=== PATIENT | female | born 1955 | race African-American/Black ===

== ENCOUNTER 2017-06-23 11:29 | Emergency (ER) | payer MEDICARE, MEDICAID ==
[~2017-06-23] VITALS: Ht 170.2 cm; Wt 130.5 kg
[~2017-06-23 11:29] MED LIST: AMIT50TA3 PO; ESCI20TA PO; LEVO150 PO; LISI-660 PO; METF500T4 PO; METO25 PO; PANT20TA12 PO; SIMV-261 PO; TOPI25 PO
[2017-06-23 12:08] VITALS: BP 120/80
[2017-06-23 12:13] LABS: GLUCOSE,POINT OF CARE 109 MG/DL (70-110)
== END 2017-06-23 12:42 | disposition home or self-care (01) ==
LOC: EMS 11:31
DX: R23.8 Other skin changes (principal); I89.0 Lymphedema, not elsewhere classified; I11.0 Hypertensive heart disease with heart failure; I50.9 Heart failure, unspecified; E78.00 Pure hypercholesterolemia, unspecified; E11.9 Type 2 diabetes mellitus without complications; Z88.0 Allergy status to penicillin
CPT/HCPCS: 82948; 82962; 99282

== ENCOUNTER 2017-06-25 09:12 | Emergency (ER) | payer MEDICARE, MEDICAID ==
[~2017-06-25] VITALS: Ht 170.2 cm; Wt 130.0 kg
[2017-06-25 09:59] LABS: BASOPHILS % (AUTO) 0.6 % (0.0-2.0); EOSINOPHILS % (AUTO) 0.4 % (1.0-6.0); HEMATOCRIT 34.1 % (36-46); HEMOGLOBIN 10.9 g/dL (12.0-16.0); LYMPHOCYTES # (AUTO) 0.9 K/uL (1.0-4.8); LYMPHOCYTES % (AUTO) 10.3 % (22.0-44.0); MEAN CORPUSCULAR HEMOGLOBIN 29.7 pg (26.0-34.0); MEAN CORPUSCULAR HGB CONC 32.1 G/dL (31.0-37.0); MEAN CORPUSCULAR VOLUME 93 fL (80-100); MONOCYTES # (AUTO) 0.4 K/uL (0.1-1.0); NEUTROPHILS # (AUTO) 7.4 K/uL (1.8-7.7); NEUTROPHILS % (AUTO) 83.7 % (40.0-70.0); PLATELET COUNT (AUTO) 240 K/uL (150-450); RED BLOOD CELL COUNT(AUTO) 3.67 MIL/uL (4.00-5.20)
[2017-06-25] MEDS ORDERED: SODIUM CHLORIDE 0.9% 1,000 ML IV ONE (10:15)
[2017-06-25] MEDS ORDERED: ONDANSETRON HCL 4 MG/2 ML VIAL IVP ONE (10:15)
[2017-06-25 10:22] LABS: ANION GAP 10 mmol/L (8-16); CALCIUM, TOTAL 9.2 mg/dL (8.8-10.5); CARBON DIOXIDE 27 mmol/L (22-29); CHLORIDE 103 mmol/L (98-107); CREATININE 2.29 mg/dL (0.60-1.30); GLOMERULAR FILTR. RATE CALC 26 mL/min (>60); GLUCOSE,RANDOM 140 mg/dL (70-110); POTASSIUM 3.9 mmol/L (3.5-5.1); SODIUM SERUM 140 mmol/L (136-145); UREA NITROGEN, BLOOD 22 mg/dL (7-18)
[2017-06-25 10:40] LABS: B-TYPE NATRIURETIC PEPTIDE 9 pg/mL (0-100)
[2017-06-25] MEDS ORDERED: MORPHINE SULFATE 4 MG/ML SYRINGE IVP ONE ×2 (10:45→14:45)
[2017-06-25 10:48] LABS: ALANINE AMINOTRANSFERASE 14 U/L (12-78); ALBUMIN 3.7 g/dL (3.4-5.0); ALKALINE PHOSPHATASE 68 U/L (46-116); ASPARTATE AMINOTRANSFERASE 13 U/L (15-37); BILIRUBIN,TOTAL 0.8 mg/dL (0.1-1.0); CREATINE KINASE MB 0.8 ng/mL (0-5); CREATINE KINASE, TOTAL 107 U/L (26-192); TOTAL PROTEIN, SERUM 7.6 g/dL (6.4-8.2)
[2017-06-25] MEDS ORDERED: IOVERSOL 350 MG/ML 150 ML VIAL ONE (11:03)
[2017-06-25 11:35] LABS: APPEARANCE,URINE CLEAR (CLEAR); BILIRUBIN,URINE NEGATIVE (NEGATIVE); GLUCOSE, URINE (UA) NEGATIVE (NEGATIVE); KETONES,URINE NEGATIVE (NEGATIVE); LEUKOCYTE ESTERASE ,URINE NEGATIVE (NEGATIVE); NITRATE,URINE NEGATIVE (NEGATIVE); OCCULT BLOOD,URINE NEGATIVE (NEGATIVE); PROTEIN,URINE NEGATIVE (NEGATIVE)
[2017-06-25 11:44] LABS: D-DIMER 13.59 mg/L FEU (0.00-0.50)
[2017-06-25 15:40] VITALS: BP 140/91
== END 2017-06-25 15:46 | disposition home or self-care (01) ==
LOC: EMS 09:14
DX: I11.0 Hypertensive heart disease with heart failure (principal); I50.9 Heart failure, unspecified; N28.9 Disorder of kidney and ureter, unspecified; R55 Syncope and collapse; E11.9 Type 2 diabetes mellitus without complications; E78.00 Pure hypercholesterolemia, unspecified; I89.0 Lymphedema, not elsewhere classified; M10.9 Gout, unspecified; Z88.0 Allergy status to penicillin
CPT/HCPCS: 36415; 71045; 71275; 80053; 81003; 82271; 82550; 82553; 83880; 84484; 85025; 85379; 85610; 93005; 96361; 96374; 96375; 96376; 99285; J2270; J2405; J7030; Q9967

== ENCOUNTER 2017-07-03 14:42 | Emergency (ER) | payer MEDICAID, MEDICARE ==
[~2017-07-03] VITALS: Ht 170.2 cm; Wt 125.0 kg
[2017-07-03] MEDS ORDERED: DiphenhydrAMINE HCL 50 MG CAPSULE PO ONE (17:15)
[2017-07-03] MEDS ORDERED: PredniSONE 20 MG TABLET PO ONE (17:15)
[2017-07-03 17:34] VITALS: BP 132/78
== END 2017-07-03 18:03 | disposition home or self-care (01) ==
LOC: EMS 14:44
DX: L50.9 Urticaria, unspecified (principal); E11.9 Type 2 diabetes mellitus without complications; E78.00 Pure hypercholesterolemia, unspecified; I11.0 Hypertensive heart disease with heart failure; I50.9 Heart failure, unspecified; M10.9 Gout, unspecified; Z88.0 Allergy status to penicillin
CPT/HCPCS: 82962; 99283; J7512

== ENCOUNTER 2017-07-24 17:51 | Inpatient (IN) | payer MEDICARE ==
[~2017-07-24] VITALS: Ht 170.2 cm; Wt 115.5 kg
[~2017-07-24 17:51] MED LIST changes: -LISI-660 PO; +MECL-129 PO; -METO25 PO
[2017-07-24 18:32] LABS: GLUCOSE,POINT OF CARE 105 MG/DL (70-110)
[2017-07-24 18:32] LABS: BASOPHILS % (AUTO) 0.8 % (0.0-2.0); EOSINOPHILS % (AUTO) 2.8 % (1.0-6.0); HEMOGLOBIN 10.6 g/dL (12.0-16.0); LYMPHOCYTES # (AUTO) 1.2 K/uL (1.0-4.8); LYMPHOCYTES % (AUTO) 26.3 % (22.0-44.0); MEAN CORPUSCULAR HEMOGLOBIN 29.4 pg (26.0-34.0); MEAN CORPUSCULAR VOLUME 92 fL (80-100); MONOCYTES # (AUTO) 0.5 K/uL (0.1-1.0); MONOCYTES % (AUTO) 10.1 % (2.0-9.0); NEUTROPHILS # (AUTO) 2.8 K/uL (1.8-7.7); PLATELET COUNT (AUTO) 249 K/uL (150-450); RED CELL DISTRIBUTION WIDTH 13.9 % (11.5-14.5)
[2017-07-24 18:46] LABS: ANION GAP 15 mmol/L (8-16); CARBON DIOXIDE 24 mmol/L (22-29); CHLORIDE 100 mmol/L (98-107); GLOMERULAR FILTR. RATE CALC 24 mL/min (>60); GLUCOSE,RANDOM 115 mg/dL (70-110); POTASSIUM 3.4 mmol/L (3.5-5.1); SODIUM SERUM 139 mmol/L (136-145); UREA NITROGEN, BLOOD 26 mg/dL (7-18)
[2017-07-24 18:51] LABS: ALANINE AMINOTRANSFERASE 13 U/L (12-78); ALBUMIN 3.7 g/dL (3.4-5.0); ALKALINE PHOSPHATASE 88 U/L (46-116); ASPARTATE AMINOTRANSFERASE 14 U/L (15-37); BILIRUBIN,TOTAL 0.8 mg/dL (0.1-1.0)
[2017-07-24 19:07] LABS: SALICYLATE < 2.8 mg/dL (2.8-20.0)
[2017-07-24 19:11] LABS: ACETAMINOPHEN < 2 mcg/mL (10-30)
[2017-07-24] MEDS ORDERED: ACTIVATED CHARCOAL 50 GM/240 ML SUSPENSION PO ONE (19:15)
[2017-07-24] MEDS ORDERED: POTASSIUM CHLORIDE 20 MEQ ER TABLET PO ONE (20:15)
[2017-07-24 20:17] LABS: AMPHET/METH SCREEN,URINE NEGATIVE (NEGATIVE); BARBITURATE SCREEN, URINE NEGATIVE (NEGATIVE); BENZODIAZEPINES SCREEN,URINE NEGATIVE (NEGATIVE); CANNABINOID SCREEN,URINE NEGATIVE (NEGATIVE); COCAINE SCREEN,URINE NEGATIVE (NEGATIVE); METHADONE SCREEN, URINE NEGATIVE (NEGATIVE); OPIATE SCREEN,URINE NEGATIVE (NEGATIVE)
[2017-07-24 20:23] LABS: PHENCYCLIDINE SCREEN,URINE NEGATIVE (NEGATIVE)
[2017-07-24] MEDS ORDERED: SODIUM CHLORIDE 0.9% 1,000 ML IV ONE (21:15)
[2017-07-24] MEDS ORDERED: HALOPERIDOL 5 MG TABLET PO PRN (23:15)
[2017-07-24] MEDS ORDERED: LORazepam 2 MG TABLET PO PRN (23:15)
[2017-07-24 23:36] LABS: APPEARANCE,URINE CLOUDY (CLEAR); GLUCOSE, URINE (UA) NEGATIVE (NEGATIVE); KETONES,URINE TRACE mg/dL (NEGATIVE); LEUKOCYTE ESTERASE ,URINE NEGATIVE (NEGATIVE); NITRATE,URINE NEGATIVE (NEGATIVE); OCCULT BLOOD,URINE NEGATIVE (NEGATIVE); PH,URINE 5.5 (5.0-8.0); PROTEIN,URINE NEGATIVE (NEGATIVE); UROBILINOGEN,URINE 0.2 mg/dL (<=1.0)
[2017-07-24 23:41] LABS: BILIRUBIN,URINE PRELIM. POSITIVE (NEGATIVE)
[2017-07-25 00:37] VITALS: BP 95/64
[2017-07-25 01:01] LABS: CHOL/HDL RATIO 3.3 (3.9-5.7); CHOLESTEROL 111 mg/dL (131-200); HDL CHOLESTEROL 34 mg/dL (40-60); LDL CHOL (CALC.) 53 mg/dL (0-130); THYROID STIMULATING HORMONE 1.06 uIU/mL (0.36-3.74); TRIGLYCERIDES 122 mg/dL (15-150)
[2017-07-25] MEDS ORDERED: MECLIZINE HCL 25 MG TABLET PO PRN (06:45)
[2017-07-25 07:11] LABS: GLUCOMETER DEV NAME(LOC) 3EI B; GLUCOSE,POINT OF CARE 102 MG/DL (70-110)
[2017-07-25] MEDS ORDERED: INSULIN ASPART 100 UNITS/ML SQ PRN (07:30)
[2017-07-25] MEDS ORDERED: DEXTROSE 50%-WATER 25 GM/50 ML SYRINGE IVP PRN (07:30)
[2017-07-25] MEDS: LEVOTHYROXINE SODIUM 150 MCG TABLET PO SCH (07:35)
[2017-07-25] MEDS: PANTOPRAZOLE SODIUM 40 MG DR TABLET PO SCH (07:35)
[2017-07-25] MEDS: MetFORMIN HCL 500 MG TABLET PO SCH ×2 (07:36→17:11)
[2017-07-25 08:00] VITALS: BP 105/78
[2017-07-25] MEDS: SIMVASTATIN 40 MG TABLET PO SCH (08:21)
[2017-07-25] MEDS: TOPIRAMATE 25 MG TABLET PO SCH (08:21)
[2017-07-25] MEDS ORDERED: ACETAMINOPHEN 325 MG TABLET PO PRN (16:00)
[2017-07-25] MEDS ORDERED: IBUPROFEN 400 MG TABLET PO PRN (16:00)
[2017-07-25] MEDS ORDERED: ALBUTEROL SULFATE HFA 90 MCG/PUFF 8 GM INHALER IH PRN (16:00)
[2017-07-25 16:13] LABS: GLUCOMETER DEV NAME(LOC) 3EX 1; GLUCOSE,POINT OF CARE 112 MG/DL (70-110)
[2017-07-25] MEDS: FERROUS SULFATE 325 MG EC TABLET PO SCH ×2 (17:12→19:41)
[2017-07-25 17:32] VITALS: BP 130/77
[2017-07-25] MEDS: AMITRIPTYLINE HCL 50 MG TABLET PO SCH (20:47)
[2017-07-25] MEDS ORDERED: AMITRIPTYLINE HCL 50 MG TABLET PO SCH (21:00)
[2017-07-26 04:20] VITALS: BP_SYST 108; BP_SYST 89; BP_DIAS 58; BP_DIAS 68
[2017-07-26 04:25] VITALS: BP 82/48
[2017-07-26 06:08] LABS: GLUCOMETER DEV NAME(LOC) 3EI B; GLUCOSE,POINT OF CARE 123 MG/DL (70-110)
[2017-07-26 06:36] LABS: % IRON SATURATION 20.8 % (22-44)
[2017-07-26 06:40] LABS: HEMOGLOBIN A1C 5.9 % (4.5-6.2)
[2017-07-26 06:56] LABS: THYROID STIMULATING HORMONE 0.82 uIU/mL (0.36-3.74)
[2017-07-26] MEDS: FERROUS SULFATE 325 MG EC TABLET PO SCH ×3 (07:12→16:42)
[2017-07-26] MEDS: PANTOPRAZOLE SODIUM 40 MG DR TABLET PO SCH (07:12)
[2017-07-26] MEDS: MetFORMIN HCL 500 MG TABLET PO SCH ×2 (07:12→16:43)
[2017-07-26] MEDS: LEVOTHYROXINE SODIUM 150 MCG TABLET PO SCH (07:12)
[2017-07-26 07:15] VITALS: BP 87/52
[2017-07-26 08:30] VITALS: BP 98/58
[2017-07-26] MEDS: TOPIRAMATE 25 MG TABLET PO SCH (08:42)
[2017-07-26] MEDS: ESCITALOPRAM OXALATE 20 MG TABLET PO SCH (08:42)
[2017-07-26] MEDS: SIMVASTATIN 40 MG TABLET PO SCH (08:43)
[2017-07-26] MEDS ORDERED: TOPIRAMATE 25 MG TABLET PO SCH (09:00)
[2017-07-26] MEDS: MULTIVITAMINS WITH MINERALS, THERAPEUTIC TABLET PO SCH (14:14)
[2017-07-26 16:43] LABS: GLUCOMETER DEV NAME(LOC) 3EX 1; GLUCOSE,POINT OF CARE 126 MG/DL (70-110)
[2017-07-26] MEDS: AMITRIPTYLINE HCL 50 MG TABLET PO SCH (20:16)
[2017-07-26 22:01] VITALS: BP 120/87
[2017-07-27 05:43] LABS: GLUCOMETER DEV NAME(LOC) 3EI B; GLUCOSE,POINT OF CARE 95 MG/DL (70-110)
[2017-07-27] MEDS: LEVOTHYROXINE SODIUM 150 MCG TABLET PO SCH (07:05)
[2017-07-27] MEDS: PANTOPRAZOLE SODIUM 40 MG DR TABLET PO SCH (07:06)
[2017-07-27] MEDS: FERROUS SULFATE 325 MG EC TABLET PO SCH ×3 (07:13→17:23)
[2017-07-27] MEDS: MetFORMIN HCL 500 MG TABLET PO SCH ×2 (07:13→17:23)
[2017-07-27] MEDS: MULTIVITAMINS WITH MINERALS, THERAPEUTIC TABLET PO SCH (07:52)
[2017-07-27] MEDS: TOPIRAMATE 25 MG TABLET PO SCH (07:52)
[2017-07-27] MEDS: SIMVASTATIN 40 MG TABLET PO SCH (07:52)
[2017-07-27] MEDS: ESCITALOPRAM OXALATE 20 MG TABLET PO SCH (07:52)
[2017-07-27] MEDS: SILVER 45 ML GEL TP SCH (07:53)
[2017-07-27 08:01] VITALS: BP 102/62
[2017-07-27 17:17] LABS: GLUCOMETER DEV NAME(LOC) 3EX 1; GLUCOSE,POINT OF CARE 110 MG/DL (70-110)
[2017-07-27] MEDS: AMITRIPTYLINE HCL 50 MG TABLET PO SCH (20:11)
[2017-07-27 20:37] VITALS: BP 100/63
[2017-07-28 05:58] LABS: GLUCOMETER DEV NAME(LOC) 3EI B; GLUCOSE,POINT OF CARE 103 MG/DL (70-110)
[2017-07-28] MEDS: FERROUS SULFATE 325 MG EC TABLET PO SCH ×3 (07:17→17:37)
[2017-07-28] MEDS: PANTOPRAZOLE SODIUM 40 MG DR TABLET PO SCH (07:17)
[2017-07-28] MEDS: MetFORMIN HCL 500 MG TABLET PO SCH ×2 (07:17→17:37)
[2017-07-28] MEDS: LEVOTHYROXINE SODIUM 150 MCG TABLET PO SCH (07:17)
[2017-07-28 07:20] VITALS: BP 91/57
[2017-07-28 08:13] VITALS: BP 116/71
[2017-07-28] MEDS: MULTIVITAMINS WITH MINERALS, THERAPEUTIC TABLET PO SCH (08:19)
[2017-07-28] MEDS: SIMVASTATIN 40 MG TABLET PO SCH (08:20)
[2017-07-28] MEDS: ESCITALOPRAM OXALATE 20 MG TABLET PO SCH (08:20)
[2017-07-28] MEDS: TOPIRAMATE 25 MG TABLET PO SCH (08:20)
[2017-07-28] MEDS: SILVER 45 ML GEL TP SCH (14:45)
[2017-07-28 16:58] LABS: GLUCOMETER DEV NAME(LOC) 3EX 1; GLUCOSE,POINT OF CARE 125 MG/DL (70-110)
[2017-07-28 17:24] VITALS: BP 125/82
[2017-07-28] MEDS: AMITRIPTYLINE HCL 50 MG TABLET PO SCH (20:04)
[2017-07-29 05:18] VITALS: BP 99/70
[2017-07-29 05:43] LABS: GLUCOMETER DEV NAME(LOC) 3EI B; GLUCOSE,POINT OF CARE 109 MG/DL (70-110)
[2017-07-29] MEDS: LEVOTHYROXINE SODIUM 150 MCG TABLET PO SCH (07:01)
[2017-07-29] MEDS: PANTOPRAZOLE SODIUM 40 MG DR TABLET PO SCH (07:01)
[2017-07-29] MEDS: FERROUS SULFATE 325 MG EC TABLET PO SCH ×3 (07:12→16:42)
[2017-07-29] MEDS: MetFORMIN HCL 500 MG TABLET PO SCH ×2 (07:12→16:42)
[2017-07-29 07:20] LABS: CALCIUM, TOTAL 8.9 mg/dL (8.8-10.5); CREATININE 1.83 mg/dL (0.60-1.30); POTASSIUM 3.8 mmol/L (3.5-5.1)
[2017-07-29 08:00] VITALS: BP 113/72
[2017-07-29] MEDS: SIMVASTATIN 40 MG TABLET PO SCH (08:09)
[2017-07-29] MEDS: MULTIVITAMINS WITH MINERALS, THERAPEUTIC TABLET PO SCH (08:09)
[2017-07-29] MEDS: BusPIRone HCL 5 MG TABLET PO SCH ×3 (08:10→16:27)
[2017-07-29] MEDS: TOPIRAMATE 25 MG TABLET PO SCH (08:10)
[2017-07-29] MEDS: ESCITALOPRAM OXALATE 20 MG TABLET PO SCH (08:10)
[2017-07-29] MEDS: SILVER 45 ML GEL TP SCH (13:34)
[2017-07-29 16:48] LABS: GLUCOMETER DEV NAME(LOC) 3EX 1; GLUCOSE,POINT OF CARE 141 MG/DL (70-110)
[2017-07-29 17:15] VITALS: BP 126/73
[2017-07-29] MEDS: AMITRIPTYLINE HCL 50 MG TABLET PO SCH (21:08)
[2017-07-30 05:48] LABS: GLUCOMETER DEV NAME(LOC) 3EI B; GLUCOSE,POINT OF CARE 88 MG/DL (70-110)
[2017-07-30] MEDS: LEVOTHYROXINE SODIUM 150 MCG TABLET PO SCH (07:07)
[2017-07-30] MEDS: FERROUS SULFATE 325 MG EC TABLET PO SCH ×3 (07:07→16:44)
[2017-07-30] MEDS: MetFORMIN HCL 500 MG TABLET PO SCH ×2 (07:07→16:44)
[2017-07-30] MEDS: PANTOPRAZOLE SODIUM 40 MG DR TABLET PO SCH (07:07)
[2017-07-30 08:20] VITALS: BP 105/74
[2017-07-30] MEDS: SIMVASTATIN 40 MG TABLET PO SCH (08:22)
[2017-07-30] MEDS: TOPIRAMATE 25 MG TABLET PO SCH (08:22)
[2017-07-30] MEDS: MULTIVITAMINS WITH MINERALS, THERAPEUTIC TABLET PO SCH (08:22)
[2017-07-30] MEDS: BusPIRone HCL 5 MG TABLET PO SCH ×3 (08:23→16:12)
[2017-07-30] MEDS: ESCITALOPRAM OXALATE 20 MG TABLET PO SCH (08:23)
[2017-07-30] MEDS: SILVER 45 ML GEL TP SCH (16:13)
[2017-07-30 16:17] LABS: GLUCOMETER DEV NAME(LOC) 3EX 1; GLUCOSE,POINT OF CARE 139 MG/DL (70-110)
[2017-07-30 18:08] VITALS: BP 107/77
[2017-07-30] MEDS: AMITRIPTYLINE HCL 50 MG TABLET PO SCH (20:25)
[2017-07-30] MEDS: ZOLPIDEM TARTRATE 10 MG TABLET PO PRN (21:47)
[2017-07-31 06:02] LABS: GLUCOMETER DEV NAME(LOC) 3EX 1; GLUCOSE,POINT OF CARE 105 MG/DL (70-110)
[2017-07-31] MEDS: FERROUS SULFATE 325 MG EC TABLET PO SCH ×3 (07:01→16:41)
[2017-07-31] MEDS: MetFORMIN HCL 500 MG TABLET PO SCH ×2 (07:01→16:41)
[2017-07-31] MEDS: LEVOTHYROXINE SODIUM 150 MCG TABLET PO SCH (07:01)
[2017-07-31] MEDS: PANTOPRAZOLE SODIUM 40 MG DR TABLET PO SCH (07:01)
[2017-07-31] MEDS: MULTIVITAMINS WITH MINERALS, THERAPEUTIC TABLET PO SCH (09:26)
[2017-07-31] MEDS: ESCITALOPRAM OXALATE 20 MG TABLET PO SCH (09:26)
[2017-07-31] MEDS: BusPIRone HCL 5 MG TABLET PO SCH ×3 (09:26→16:41)
[2017-07-31] MEDS: TOPIRAMATE 25 MG TABLET PO SCH (09:27)
[2017-07-31] MEDS: SIMVASTATIN 40 MG TABLET PO SCH (09:27)
[2017-07-31] MEDS: SILVER 45 ML GEL TP SCH (09:27)
[2017-07-31 13:08] VITALS: BP 112/63
[2017-07-31 16:30] VITALS: BP 114/69
[2017-07-31 16:52] LABS: GLUCOMETER DEV NAME(LOC) 3EX 1; GLUCOSE,POINT OF CARE 135 MG/DL (70-110)
[2017-07-31] MEDS: AMITRIPTYLINE HCL 50 MG TABLET PO SCH (20:11)
[2017-07-31] MEDS: ZOLPIDEM TARTRATE 10 MG TABLET PO PRN (21:34)
[2017-08-01 06:28] LABS: GLUCOMETER DEV NAME(LOC) 3EI B; GLUCOSE,POINT OF CARE 100 MG/DL (70-110)
[2017-08-01] MEDS: LEVOTHYROXINE SODIUM 150 MCG TABLET PO SCH (06:55)
[2017-08-01] MEDS: PANTOPRAZOLE SODIUM 40 MG DR TABLET PO SCH (06:55)
[2017-08-01] MEDS: FERROUS SULFATE 325 MG EC TABLET PO SCH ×3 (06:55→17:30)
[2017-08-01] MEDS: MetFORMIN HCL 500 MG TABLET PO SCH ×2 (06:56→17:55)
[2017-08-01] MEDS: SIMVASTATIN 40 MG TABLET PO SCH (07:46)
[2017-08-01] MEDS: MULTIVITAMINS WITH MINERALS, THERAPEUTIC TABLET PO SCH (07:46)
[2017-08-01] MEDS: SILVER 45 ML GEL TP SCH (07:46)
[2017-08-01] MEDS: TOPIRAMATE 25 MG TABLET PO SCH (07:47)
[2017-08-01] MEDS: BusPIRone HCL 5 MG TABLET PO SCH ×3 (07:47→17:29)
[2017-08-01] MEDS: ESCITALOPRAM OXALATE 20 MG TABLET PO SCH (07:47)
[2017-08-01 09:36] VITALS: BP 123/63
[2017-08-01] MEDS ORDERED: FERR-89 PO (17:27)
[2017-08-01] MEDS ORDERED: METF500T4 PO (17:28)
[2017-08-01] MEDS ORDERED: PANT40TA25 PO (17:29)
[2017-08-01] MEDS ORDERED: LEVO150 PO (17:29)
[2017-08-01] MEDS ORDERED: MULT1TAB70 PO (17:31)
[2017-08-01] MEDS ORDERED: SIMV-261 PO (17:32)
[2017-08-01] MEDS ORDERED: SILV480G TP (17:41)
[2017-08-01] MEDS ORDERED: ESCI20TA PO (17:55)
[2017-08-01] MEDS ORDERED: AMIT50TA3 PO (17:55)
[2017-08-01] MEDS ORDERED: BUSP5TAB20 PO (17:56)
== END 2017-08-01 18:30 | disposition home or self-care (01) | DRG 885 ==
LOC: EMS 17:52 → 3EX 23:59
PROVIDERS: ADMIT Psychiatry & Neurology Psychiatry; ATTEND Psychiatry & Neurology Child & Adolescent Psychiatry
DX: F33.2 Major depressive disorder, recurrent severe without psychotic features (principal); N17.9 Acute kidney failure, unspecified; E11.22 Type 2 diabetes mellitus with diabetic chronic kidney disease; I13.0 Hypertensive heart and chronic kidney disease with heart failure and stage 1 through stage 4 chronic kidney disease, or unspecified chronic kidney disease; I50.9 Heart failure, unspecified; D64.9 Anemia, unspecified; E03.9 Hypothyroidism, unspecified; E66.3 Overweight; E78.00 Pure hypercholesterolemia, unspecified; E78.5 Hyperlipidemia, unspecified; E87.6 Hypokalemia; G40.909 Epilepsy, unspecified, not intractable, without status epilepticus; J45.909 Unspecified asthma, uncomplicated; K21.9 Gastro-esophageal reflux disease without esophagitis; S91.301A Unspecified open wound, right foot, initial encounter; X58.XXXA Exposure to other specified factors, initial encounter; N18.9 Chronic kidney disease, unspecified; Z91.410 Personal history of adult physical and sexual abuse; Z88.0 Allergy status to penicillin; Z88.8 Allergy status to other drugs, medicaments and biological substances; Z91.030 Bee allergy status; Z79.899 Other long term (current) drug therapy; M10.9 Gout, unspecified; Y93.89 Activity, other specified; Y92.89 Other specified places as the place of occurrence of the external cause; Y99.8 Other external cause status; Z68.39 Body mass index [BMI] 39.0-39.9, adult
CPT/HCPCS: 82728; 82962; 83036; 83540; 83550; 84443; 87081; 93005; 96360; 99285; G0480; G0481; J7030